=== PATIENT | male | born 1975 | race Caucasian/White ===

== ENCOUNTER 2020-08-15 20:33 | Emergency (ER) | payer MEDICAID ==
[~2020-08-15] VITALS: Ht 180.3 cm; Wt 78.7 kg
[2020-08-15 20:50] VITALS: BP 139/87
[2020-08-15] MEDS ORDERED: CEFTRIAXONE 1,000 MG IM ONE (21:30)
[2020-08-15] MEDS ORDERED: AZITHROMYCIN 500 MG TABLET PO ONE (21:30)
[2020-08-15] MEDS ORDERED: AZITHROMYCIN 500 MG TABLET ONE (21:37)
[2020-08-15] MEDS ORDERED: CEFTRIAXONE 1,000 MG ONE (21:37)
[2020-08-15] MEDS ORDERED: LIDOCAINE-MPF 1%, 5ML ONE (21:38)
[2020-08-15 21:46] LABS: MICROSCOPIC INDICATED
--- NOTE | 2020-08-15 22:04 | NUR ---
PT MEDICATED PER ORDERS. CHART UP FOR RECHECK.
--- NOTE | 2020-08-15 23:03 | NUR ---
NO REACTION AFTER IM ROCEPHIN. PT REFUSED RECHECK OF VITAL SIGNS, STATES, "I NEED TO GO, I HAVE TO WORK IN THE MORNING". D/C INSTRUCTIONS & F/U APPT RV'WD WITH PT, HE VERBALIZES UNDERSTANDING. AMBULATED OUT OF ED WITHOUT DIFFICULTY.
== END 2020-08-15 23:06 | disposition home or self-care (01) ==
LOC: ED 22:09
DX: A54.9 Gonococcal infection, unspecified (principal); A74.9 Chlamydial infection, unspecified
CPT/HCPCS: 81001; 87077; 87086; 87491; 87591; 96372; 99283; J0696